=== PATIENT | female | born 1990 | race Caucasian/White ===

== ENCOUNTER 2024-03-17 06:49 | Day surgery (SDC) | payer OTHER ==
[2024-03-17] MEDS: Lactated Ringers 1,000 ML IV SCH (07:06)
[2024-03-17 07:07] LABS: HCG URINE TEST NEGATIVE (NEGATIVE)
[2024-03-17] MEDS: Decadron 4 MG PO ONE (07:17)
[2024-03-17] MEDS: celeBREX 100 MG PO ONE (07:17)
[2024-03-17] MEDS: NEURONTIN PO ONE (07:17)
[2024-03-17] MEDS: TYLENOL EXTRA STRENGTH 500 MG PO ONE (07:17)
[2024-03-17] MEDS: Reglan 10 MG/2 ML IV ONE (07:42)
[2024-03-17] MEDS: Pepcid 20 MG VIAL IV ONE (07:42)
[2024-03-17] MEDS: CLINDAMYCIN-D5W 900 MG/50 ML*** 900 MG/50 ML BAG IV SCH (07:46)
[2024-03-17] MEDS ORDERED: ASTRINGYN 8 GM TP ONE (08:52)
[2024-03-17] MEDS ORDERED: Lugol's Solution ONE (08:52)
[2024-03-17] MEDS ORDERED: XYLOCAINE 1%/Epi 1:100000 MDV 20 ML ONE (08:52)
[2024-03-17] MEDS ORDERED: Quelicin Fliptop 200 MG/10 ML ONE (09:19)
[2024-03-17] MEDS ORDERED: SUBLIMAZE 100 MCG/2 ML ONE (09:20)
[2024-03-17] MEDS ORDERED: propofoL IV ONE (09:20)
[2024-03-17] MEDS ORDERED: Versed 2 MG/2 ML Injection ONE (09:20)
[2024-03-17 10:44] VITALS: RESP 16
[2024-03-17 10:54] VITALS: BP 125/83; PULSE 83; TEMP 97.4; O2SAT 97
--- NOTE | 2024-03-19 09:37 | OP ---
SURGERY DATE/TIME: 03/17/2024 [id number] PREOPERATIVE DIAGNOSIS: Severe cervical dysplasia, high grade. POSTOPERATIVE DIAGNOSIS: Severe cervical dysplasia, high grade. PROCEDURE: Loop electrosurgical excision procedure, otherwise known as LEEP. SURGEON: Yossi Verdugo DO [employer] INSTALLER: Shaylee White. ANESTHESIA: General. ESTIMATED BLOOD LOSS: Minimal. COMPLICATIONS: None. INDICATIONS: The risks, benefits, indications, and alternatives of the procedure were reviewed with the patient prior to the procedure. Patient understood the risks of infection, bleeding, uterine perforation, cervical stenosis, possible inability to achieve in the future, and desires to have this procedure as a possible means to alleviate her current medical condition. DESCRIPTION OF PROCEDURE AND FINDINGS: At this point, patient was taken to the operating room, given general sedation, placed in the dorsal lithotomy position, prepped and draped in the usual sterile fashion. A coated speculum was then placed into patient's vagina and the cervix was then injected circumferentially with 1% lidocaine with epinephrine and approximately 15 mL was used. From this point, the loop instrument was then used to excise the ectocervical cervical tissue in a [id number] motion and was excised with approximately 7 to 8 mm of ectocervical tissue removed without complication. An additional 2 to 3 mm of endocervical tissue was excised in a similar fashion and hemostasis was obtained by placement of loop adult school teacher ball on the surface of the cervix. From this point, there was no bleeding noted from the cervix and Monsel solution was placed on top of the cervix for further hemostasis. At the completion of the procedure, all instruments were removed from the patient's vaginal region. The patient was then taken out of the dorsal lithotomy position, was then taken out of anesthesia, and was then taken to the recovery room in stable condition. All instruments and laps were accounted for x2.
== END 2024-03-17 11:02 | disposition home or self-care (01) ==
LOC: SDC 06:49
PROVIDERS: ATTEND Obstetrics & Gynecology
DX: D06.9 Carcinoma in situ of cervix, unspecified (principal)
CPT/HCPCS: 57460; 81025; J0330; J2250; J2704; J3010; A9270-GY